=== PATIENT | male | born 1995 | race Caucasian/White ===

== ENCOUNTER 2021-09-26 14:01 | Emergency (ER) | payer BC, SELFPAY ==
[~2021-09-26] VITALS: Ht 175.3 cm; Wt 77.1 kg
[2021-09-26] MEDS ORDERED: HYDR-3917 PO (15:29)
[2021-09-26] MEDS ORDERED: IBUP-1971 PO (15:29)
[2021-09-26 15:31] VITALS: BP_SYST 119
--- NOTE | 2021-09-26 15:31 | NUR ---
Patient triaged and placed in waiting room. VSS and patient appears in no acute distress at this time. Accompanied by self, awaiting available bed, and MD notified of need for MSE.
--- NOTE | 2021-09-26 15:34 | NUR ---
ER Dr. Cervantes at bedside examining patient.
--- NOTE | 2021-09-26 15:35 | NUR ---
Patient brought in complaining of right knee pain s/p fall yesterday while skiing. Redness, swelling noted and difficulty bearing weight. pain 4/10 at rest.
[2021-09-26 15:41] VITALS: BP_SYST 119
--- NOTE | 2021-09-26 15:41 | NUR ---
Patient given written and verbal discharge instructions and verbalizes understanding. ER MD discussed with patient the results and treatment provided. Patient in stable condition. ID arm band removed. Rx of norco and motrin given. Patient educated on pain management and to follow up with PMD. Pain Scale 2/10 Opportunity for questions provided and answered. Medication side effect fact sheet provided.
== END 2021-09-26 15:41 | disposition home or self-care (01) ==
LOC: SED 14:01
DX: M25.461 Effusion, right knee (principal); Z79.899 Other long term (current) drug therapy
CPT/HCPCS: 73564; 99283